=== PATIENT | female | born 2000 | race Caucasian/White ===

== ENCOUNTER 2023-05-02 12:00 | Outpatient (CLI) | payer OTHER ==
[2023-05-02 21:50] LABS: INFLUENZA A H3- RESP PCR PANEL DETECTED; INFLUENZA B - RESP PCR PANEL NOT DETECTED; RSV- RESP PCR PANEL NOT DETECTED; SARS-CoV-2 -RESP PCR PANEL NOT DETECTED
== END 2023-05-02 12:15 | disposition home or self-care (01) ==
LOC: LAB.N 12:00
PROVIDERS: ATTEND Registered Nurse
DX: R50.9 Fever, unspecified (principal); R52 Pain, unspecified; J34.89 Other specified disorders of nose and nasal sinuses
CPT/HCPCS: 87637

== ENCOUNTER 2023-09-12 12:59 | Outpatient (CLI) | payer OTHER | END 2023-09-12 13:00 | disposition home or self-care (01) | LOC: DI 12:59 | PROVIDERS: ATTEND Family Medicine | DX: R55 Syncope and collapse (principal); R94.31 Abnormal electrocardiogram [ECG] [EKG] | CPT/HCPCS: 93307 ==

== ENCOUNTER 2023-09-18 08:15 | Emergency (ER) | payer OTHER ==
--- NOTE | 2023-09-18 08:38 | ED Physician Documentation ---
PD HPI URI - Stated complaint Stated Complaint: FEVER,THROAT PX - Chief complaint Chief Complaint: Fever - History obtained from History obtained from: Patient - History of Present Illness Timing - onset: How many days ago (onset illness 4 days ago with congestion, runny nose, sore throat, mild cough, fevers. Has had dminishing other symptoms but sore throat escalating, mainly left side.) Timing duration: Days Timing details: Gradual onset, Still present Associated symptoms: Fever, Chills, Nasal congestion, Sore throat, Dry cough Contributing factors: No: Sick contact, Immunocompromised Similar symptoms before: Has not had sx before Review of Systems Constitutional: reports: Fever, Chills Nose: reports: Congestion Throat: reports: Sore throat, Swollen tonsils Respiratory: reports: Cough PD PAST MEDICAL HISTORY - Past Medical History Past Medical History: Yes Cardiovascular: None Respiratory: None Neuro: None Endocrine/Autoimmune: None GI: None CREDIT OPERATIONS SPECIALIST: None : None HEENT: None Psych: Anxiety, Obsessive compulsive disorder Musculoskeletal: None Derm: None - Past Surgical History Past Surgical History: Yes General: Appendectomy - Present Medications Home Medications: Ambulatory Orders Medication Instructions Recorded Confirmed Pnv No.95/Ferrous Fum/Folic AC 1 each PO DAILY 09/18/23 09/18/23 [ Tablet] cephALEXin [Keflex] 500 mg PO TID #20 cap 09/18/23 dexAMETHasone [Decadron] 4 mg PO DAILY #5 tablet 09/18/23 - Allergies Allergies/Adverse Reactions: Allergies Allergy/AdvReac Type Severity Reaction Status Date / Time amoxicillin Allergy Rash Verified 09/18/23 08:19 chorionic gonadotropin, Allergy Rash Verified 09/18/23 08:19 human (hCG) [From Chorex-10] - Social History Does the pt smoke?: No Smoking Status: Former smoker Does the pt drink ETOH?: Yes Does the pt have substance abuse?: No - Immunizations Immunizations are current?: Yes PD ED PE NORMAL - Vitals Vital signs reviewed: Yes - General General: Alert and oriented X 3, No acute distress, Well developed/nourished - HEENT HEENT: Moist mucous membranes. No: Pharynx benign (redness with swelling left perintonsillar area without focal swelling per se. No uvular deviation. ) - Neck Neck: Supple, no meningeal sign, Other (left adenopathy anterior cervical. ) - Cardiac Cardiac: No murmur. No: RRR (regular but tachycarcid at 107.) - Respiratory Respiratory: No respiratory distress, Clear bilaterally - Abdomen Abdomen: Normal bowel sounds, Soft - Derm Derm: Normal color, Warm and dry, No rash - Neuro Neuro: Alert and oriented X 3, No motor deficit, Normal speech Results - Vitals Vitals: Vital Signs - 24 hr 09/18/23 09/18/23 08:20 10:31 Temperature 37.4 C Heart Rate 107 H 97 Respiratory 18 18 Rate Blood Pressure 145/79 H 116/64 O2 Saturation 99 100 Oxygen O2 Source Room air - Labs Labs: Laboratory Tests 09/18/23 09/18/23 08:30 08:30 Nasal Adenovirus (PCR) NOT DETECTED Nasal B. parapertussis DNA (PCR) NOT DETECTED Nasal Coronavir 229E PCR NOT DETECTED Nasal Coronavir HKU1 PCR DETECTED A Nasal Coronavir NL63 PCR NOT DETECTED Nasal Coronavir OC43 PCR NOT DETECTED Nasal Enterovir/Rhinovir PCR NOT DETECTED Nasal Influenza B PCR NOT DETECTED Nasal Influenza A PCR NOT DETECTED Nasal Parainfluen 1 PCR NOT DETECTED Nasal Parainfluen 2 PCR NOT DETECTED Nasal Parainfluen 3 PCR NOT DETECTED Nasal Parainfluen 4 PCR NOT DETECTED Nasal RSV (PCR) NOT DETECTED Nasal B.pertussis DNA PCR NOT DETECTED Nasal C.pneumoniae (PCR) NOT DETECTED Anthony Human Metapneumo PCR NOT DETECTED Nasal M.pneumoniae (PCR) NOT DETECTED Nasal SARS-CoV-2 (PCR) NOT DETECTED Group A Strep Rapid Negative PD Medical Decision Making - ED course Complexity details: reviewed results (rapid strep negative, but clinically suspicious for URI with now secondary peritonsillar infection. will treat emiprically pending culture. ), considered differential, d/w patient Departure - Departure Disposition: 01 Home, Self Care Clinical Impression: Peritonsillar cellulitis Condition: Stable Record reviewed to determine appropriate education?: Yes Instructions: ED Peritonsillar Infec Abx No I andD Follow-Up: BRYAN PATEL DO [Primary Care Provider] - Prescriptions: dexAMETHasone [Decadron] 4 mg PO DAILY #5 tablet cephALEXin [Keflex] 500 mg PO TID #20 cap Comments: Your rapid strep test is negative but it does look very suspicious for bacterial type infection in the tissue there. We will do a culture off the swab and that will result in a couple of days. Will call if there is positive bacterial growth. Meanwhile with the level of suspicion for it, I would treat with some antibiotics pending those results as well as a steroid type anti-inflammatory. Stay well-hydrated. Tylenol and/or ibuprofen regularly for the next several days to help with pain. Recheck if worsening, in particular any feeling of swelling that is impeding swallowing breathing etc. Is a new prescriptions to [facility] pharmacy. Forms: PCP List Discharge Date/Time: 09/18/23 10:36
[2023-09-18 08:44] LABS: RAPID STREP SCREEN Negative (Negative)
[2023-09-18 09:28] LABS: B. PARAPERTUSSIS- RESP PCR PAN NOT DETECTED; B. PERTUSSIS- RESP PCR PANEL NOT DETECTED; C. PNEUMONIAE- RESP PCR PANEL NOT DETECTED; CORONAVIRUS 229E-RESP PCR NOT DETECTED; CORONAVIRUS HKU1-RESP PCR DETECTED; CORONAVIRUS NL63-RESP PCR NOT DETECTED; CORONAVIRUS OC43-RESP PCR NOT DETECTED; HUMAN METAPNEUMOVIRUS NOT DETECTED; INFLUENZA A- RESP PCR PANEL NOT DETECTED; INFLUENZA B - RESP PCR PANEL NOT DETECTED; M. PNEUMONIAE- RESP PCR PANEL NOT DETECTED; PARAINFLUENZA VIRUS 1 NOT DETECTED; PARAINFLUENZA VIRUS 2 NOT DETECTED; PARAINFLUENZA VIRUS 3 NOT DETECTED; PARAINFLUENZA VIRUS 4 NOT DETECTED; RHINOVIRUS/ENTEROVIRUS NOT DETECTED; RSV- RESP PCR PANEL NOT DETECTED; SARS-CoV-2 -RESP PCR PANEL NOT DETECTED
[2023-09-18] MEDS: ACETAMINOPHEN 500 MG TABLET PO STA (09:46)
[2023-09-18] MEDS: dexAMETHasone 4 MG TABLET PO STA (09:46)
[2023-09-18] MEDS: cephALEXin 250 MG CAPSULE PO STA (09:47)
[2023-09-18 10:38] VITALS: BP 116/64; O2SAT 100
== END 2023-09-18 10:36 | disposition home or self-care (01) ==
LOC: ED 08:15
DX: J36 Peritonsillar abscess (principal); Z87.891 Personal history of nicotine dependence
CPT/HCPCS: 87070; 87430; 87633; 99283; A9270; J8540

== ENCOUNTER 2023-10-12 08:00 | Outpatient (CLI) | payer OTHER ==
[2023-10-12 17:11] LABS: BILIRUBIN,URINE NEGATIVE (NEGATIVE); GLUCOSE, URINE (UA) NEGATIVE (NEGATIVE); KETONES,URINE (UA) NEGATIVE (NEGATIVE); LEUKOCYTE ESTERASE, URINE NEGATIVE (NEGATIVE); NITRITE,URINE NEGATIVE (NEGATIVE); OCCULT BLOOD,URINE NEGATIVE (NEGATIVE); PH,URINE 7.5 PH (5.0-7.5); PROTEIN,URINE NEGATIVE (NEGATIVE); UROBILINOGEN,URINE 0.2 (NORMAL) E.U./dL (NORMAL)
[2023-10-12 17:17] LABS: CLARITY,URINE CLEAR (CLEAR)
[2023-10-12 17:24] LABS: BACTERIA,URINE Many /HPF (None Seen); RBC,URINE None Seen /HPF (0-5); SQUAMOUS EPITHELIAL CELL,UR MOD Squamous (<= Few); WBC,URINE 0-3 /HPF (0-5)
== END 2023-10-12 23:59 | disposition home or self-care (01) ==
LOC: LAB.WC 08:00
PROVIDERS: ATTEND Nurse Practitioner
DX: Z34.00 Encounter for supervision of normal first pregnancy, unspecified trimester (principal)
CPT/HCPCS: 81001; 87086

== ENCOUNTER 2023-10-30 11:11 | Outpatient (CLI) | payer OTHER ==
--- NOTE | 2023-10-30 14:32 | Ultrasound Report ---
PROCEDURE: OB 1st Trimester INDICATIONS: POSITIVE TEST OUTSIDE/PRIOR DATING DATA: Last menstrual period (LMP): 08/24/2023. LMP-based estimated date of delivery (BOB): 05/30/2024. Estimated date of delivery (BOB) from first dating scan: 05/29/2024. TECHNIQUE: Real-time scanning was performed of the fetus and maternal pelvic organs, with image documentation. COMPARISON: None. FINDINGS: heart motion is detected at a rate of 173 bpm. [place]-rump length is 2.9 cm corresponding to ultrasound age of 9 weeks and 5 days. Yolk sac is seen. Right corpus luteum. Left ovary is not seen due to bowel gas. IMPRESSION: Living intrauterine gestation at an ultrasound age of 9 weeks and 5 days. Reviewed by: Brown Wong MD on 10/30/2023 2:30 PM PDT Approved by: Brown Wong MD on 10/30/2023 2:30 PM PDT Station ID: [id number]
== END 2023-10-30 11:12 | disposition home or self-care (01) ==
LOC: DI 11:11
PROVIDERS: ATTEND Nurse Practitioner
DX: Z34.01 Encounter for supervision of normal first pregnancy, first trimester (principal)

== ENCOUNTER 2023-11-08 11:12 | Outpatient (CLI) | payer OTHER ==
[2023-11-08 11:37] LABS: BASOPHILS % (AUTO) 0.1 %; EOSINOPHILS # (AUTO) 0.1 10^3/uL (0.0-0.7); EOSINOPHILS % (AUTO) 1.3 %; HCT - HEMATOCRIT 35.9 % (37.0-47.0); HGB - HEMOGLOBIN 11.7 g/dL (12.0-16.0); LYMPHOCYTES # (AUTO) 1.8 10^3/uL (1.5-3.5); LYMPHOCYTES % (AUTO) 25.1 %; MEAN CORPUSCULAR HEMOGLOBIN 27.9 pg (27.0-31.0); MEAN CORPUSCULAR HGB CONC 32.6 g/dL (32.0-36.0); MEAN CORPUSCULAR VOLUME 85.7 fL (81.0-99.0); MEAN PLATELET VOLUME 9.3 fL (7.9-10.8); MONOCYTES # (AUTO) 0.5 10^3/uL (0.0-1.0); MONOCYTES % (AUTO) 6.4 %; NEUTROPHILS # (AUTO) 4.7 10^3/uL (1.5-6.6); NEUTROPHILS % (AUTO) 66.7 %; PLT - PLATELET COUNT 246 10^3/uL (130-450); RED BLOOD COUNT 4.19 10^6/uL (4.20-5.40); RED CELL DISTRIBUTION WIDTH 13.3 % (12.0-15.0); WHITE BLOOD COUNT 7.1 x10^3/uL (4.8-10.8)
[2023-11-08 23:22] LABS: CHLAMYDIA TRACHOMATIS DNA NEGATIVE (NEGATIVE); NEISSERIA GONORRHOEAE DNA NEGATIVE (NEGATIVE); TRICHOMONAS VAGINALIS DNA NEGATIVE (NEGATIVE)
[2023-11-09 03:11] LABS: HBsAG SCREEN Negative (Negative)
[2023-11-09 05:14] LABS: HIV SCREEN 4TH GENERATION Non Reactive (Non Reactive)
[2023-11-09 07:10] LABS: RPR Non Reactive (Non Reactive)
[2023-11-09 09:11] LABS: VARICELLA-ZOSTER AB IGG 3369 index (Immune >165)
== END 2023-11-08 11:13 | disposition home or self-care (01) ==
LOC: LAB 11:12
PROVIDERS: ATTEND Nurse Practitioner
DX: Z34.00 Encounter for supervision of normal first pregnancy, unspecified trimester (principal); Z36.89 Encounter for other specified antenatal screening
CPT/HCPCS: 36415; 85025; 86592; 86762; 86787; 86803; 86850; 86900; 86901; 87340; 87389; 87491; 87591; 87661

== ENCOUNTER 2023-12-28 16:23 | Outpatient (CLI) | payer OTHER | END 2023-12-28 16:24 | disposition home or self-care (01) | LOC: LAB 16:23 | PROVIDERS: ATTEND Nurse Practitioner | DX: Z36.89 Encounter for other specified antenatal screening (principal) | CPT/HCPCS: 36415; 81511 ==

== ENCOUNTER 2024-01-11 15:52 | Outpatient (CLI) | payer OTHER ==
--- NOTE | 2024-01-12 11:22 | Ultrasound Report ---
PROCEDURE: OB Anatomy Scan INDICATIONS: SUPERVISION OF OUTSIDE/PRIOR DATING DATA: Last menstrual period (LMP): 08/24/2023. LMP-based estimated date of delivery (BOB): 05/30/2024. The below data below was generated using the clinical BOB of 05/30/2024 TECHNIQUE: Real-time scanning was performed of the fetus, with image documentation and biometric measurements. Endovaginal scanning: Not performed. COMPARISON: 10/30/2023 FINDINGS: General: A single living intrauterine gestation is present. Presentation: Vertex Placenta: Placental position is anterior, without previa. Amniotic fluid index: 13.8 cm, 46th percentile for gestational age. heart rate: 136 beats per minute. Maternal cervical canal: 4.3 cm long; normal length is 2.5 cm or more. biometrics: Biparietal diameter: 4.85 cm, 20 weeks 5 days, 76.8 percentile Head circumference: 18.41 cm, 20 weeks 5 days, 76.7 percentile Abdominal circumference: 15.6 cm, 20 weeks 6 days, 70.5 percentile Femur length: 3.06 cm, 19 weeks 3 days, 24 percentile Estimated gestational age from initial scan: 20 weeks 0 days Composite gestational age from present scan: 20 weeks 4 days Estimated weight and percentile: 242.1 g, 60.5 percentile Measurement variability in biometric dating: +/- 10 days from 12-20 weeks gestation, +/- 2 weeks from 20-30 weeks gestation, +/- 3 weeks at 30 weeks gestation or later. Anatomic survey: Markedly limited due to position. Neuro: Ventricles are normal at less than 10 mm. Cisterna magna is normal at 3-11 mm. Cerebellum i s normal in size and morphology. Nuchal skin fold: Normal at less than 6 mm between 14 and 20 weeks gestational age. Face: Not well visualized. Spine: No evidence for spina bifida. Heart: Not well visualized. Diaphragm: not well visualized. Stomach: Left-sided stomach is present. Kidneys: No hydronephrosis. Normal is less than 5 mm in 2nd trimester, less than 7 mm in 3rd trimester. Cord: Not well visualized. Bladder: Normal in size. Extremities: All 4 extremities are visualized. IMPRESSION: Single living intrauterine at 20 weeks 0 days, BOB of 05/30/2024. Estimated weight of 242 g, 60.5 percentile. The face, heart, diaphragm and cord are not well visualized due to position. Consider short-ter m follow-up. Reviewed by: Tyler Hunter MD on 01/12/2024 11:20 AM PDT Approved by: Tyler Hunter MD on 01/12/2024 11:20 AM PDT Station ID: [id number]
== END 2024-01-11 15:53 | disposition home or self-care (01) ==
LOC: DI 15:52
PROVIDERS: ATTEND Nurse Practitioner
DX: Z34.02 Encounter for supervision of normal first pregnancy, second trimester (principal)

== ENCOUNTER 2024-01-12 08:00 | Outpatient (CLI) | payer OTHER ==
[2024-01-12 21:02] LABS: BACTERIAL VAGINOSIS DNA NEGATIVE (NEGATIVE); CANDIDA GLABRATA DNA NEGATIVE (NEGATIVE); CANDIDA GROUP DNA NEGATIVE (NEGATIVE); CANDIDA KRUSEI DNA NEGATIVE (NEGATIVE); TRICHOMONAS VAGINALIS DNA NEGATIVE (NEGATIVE)
== END 2024-01-12 23:59 | disposition home or self-care (01) ==
LOC: LAB.WC 08:00
PROVIDERS: ATTEND Nurse Practitioner
DX: L29.8 Other pruritus (principal)
CPT/HCPCS: 81514

== ENCOUNTER 2024-05-30 08:18 | Inpatient (IN) ==
--- NOTE | 2024-05-30 09:39 | PROVIDER PROGRESS NOTE ---
HPI Current : Vital Signs Temperature 36.8 C 05/30/24 08:49 Pulse Rate 83 05/30/24 08:49 Respiratory Rate 17 05/30/24 08:49 Blood Pressure 137/83 H 05/30/24 08:49 Plan Plan: 24 yo presents to L&D for labor evaluation at 40+0 weeks gestation. Reactive NST. Baseline heart rate 140, moderate variability, +accelerations, - decelerations. CTX q 2-3.5, palpate moderately. SVE 3-4/80/-2. Desires to stay for admission. Outpatient encounter completed and admission process initiated.
[2024-05-30] MEDS ORDERED: LABETALOL 20 MG/4 ML SYRINGE IVP PRN ×5 (11:35→23:40)
[2024-05-30] MEDS ORDERED: OXYTOCIN 10 UNIT/ML VIAL IM PRN (11:35)
[2024-05-30] MEDS ORDERED: hydrALAZINE INJ 20 MG/ML VIAL IVP PRN ×3 (11:35→23:40)
[2024-05-30] MEDS ORDERED: NIFEdipine 10 MG CAPSULE PO PRN ×2 (11:35→23:40)
[2024-05-30] MEDS ORDERED: miSOPROStoL 200 MCG TABLET PR PRN (11:35)
[2024-05-30] MEDS ORDERED: TERBUTALINE 1 MG/ML VIAL SUBQ PRN (11:35)
[2024-05-30] MEDS ORDERED: SODIUM CHLORIDE FLUSH 0.9% 10 ML SYRINGE IVP PRN (11:35)
[2024-05-30] MEDS ORDERED: LACTATED RINGERS 1,000 ML IV PRN (11:35)
[2024-05-30] MEDS ORDERED: miSOPROStoL 200 MCG TABLET BC PRN (11:35)
[2024-05-30] MEDS ORDERED: fentaNYL 100 MCG/2 ML VIAL IVP PRN (11:35)
[2024-05-30] MEDS ORDERED: lidocaine 1% 20 ML MDV ID PRN (11:35)
[2024-05-30] MEDS ORDERED: METHYLERGONOVINE 0.2 MG/ML VIAL IM PRN (11:35)
[2024-05-30] MEDS ORDERED: SODIUM CHLORIDE FLUSH 0.9% 10 ML SYRINGE IVP SCH (12:00)
[2024-05-30] MEDS: ACETAMINOPHEN 500 MG TABLET PO PRN (12:17)
--- NOTE | 2024-05-30 13:11 | HISTORY & PHYSICAL EXAMINATION ---
Admit History Smoking Status: Never smoker Other Maternal History Other Maternal History: HPI: This 24 yo @ 40+0 weeks by LMP and confirmed by 9+5 week ultrasound. She has been patricia regularily since 0200. Has not been able to get any rest. The contractions continued to become stronger and closer together. Upon arrival her cervix was 2/60/-2 (RN exam). Desired to stay on L&D and open to membrane sweeping. Post sweeping, 3-4/80/-2, intact, vertex. She has been a patient of [facility] care for the duration of her which has remained uncomplicated. She has had a recent viral course and had an elevated temperature after membrane sweeping. Intermittent nausea. ROS: No Headache, visual changes or right upper quadrant abdominal pain. Denies urinary urgency or dysuria. All other symptoms reviewed and were negative except per HPI. In the event of an emergency, DOES accept the administration of blood products. Specific Issues/Plans LMP: 08/24/2023 BOB by LMP: 05/30/2024 US: 10/30/23 9+5w CW LMP Final BOB: 05/30/2024 Allergies: Chlorhexidine Amoxicillin RX: PNV Folic acid Social Hx: Never smoker. No ETOH or IVDA. Zhou. FM HX: MGF: pancreatic ca, PGF: heart disease, diabetes, Brother: spinabifida Surgical: Appendectomy, [place] teeth Pre- Weight: 182 BMI: 27.06 Blood type: O+ Antibody: Negative CBC: PLT 246 HCT 35.9 HGB 11.7 RUB: Immune VZV: Immune HBsAg: Negative HepC: NR RPR/AB-EIA: NR HIV: NR PAP:Jan 2022 normal GC/CT: 11/07 Negative HSV: denies in self and partner Genetic testing: Quad - Screen Negative- This result is screen negative for OSB, Down, Syndrome and Trisomy 18. Covid: vaccinated and virus Flu: vaccinated RSV: vaccinated FAS: 01/11/2024 Placenta: Anterior w/o previa Cord: not well visualized NIK: 138cm EFW: 242g; 60.5%tile 50gm OGCT: 148 3HR GTT: F: 89; 1h: 128: 2hr 120; 3hr 106 TDAP: 03/12/2024 Breast Pump: Given RPR NR RSV vaccine: 04/10/2024 Antibody screen: 3rd trimester PLT 231 HCT 37.2 HGB 12.1 GBS: Negative Delivery plan: unsure, would like to try unmedicated. Possibly nitrous. Not opposed to epidural. Contraception: Previously nexplanon. Unsure this time. Physical exam: Normocephalic, atraumatic No increased work of breathing Abdomen gravid, soft, nontender. EFW 3800 FHR baseline 140, moderate variability, + accelerations, no decelerations Contractions palpate moderate every 3-6 minutes with soft resting tone SVE 3-4/80/-2, vertex, membranes intact Bilateral LE's 1+ edema Mood is good. Assessment: 24 yo @ 40+0 weeks gestation by 9+5 wk U/S Early labor FHR 140's Cat I Intact membranes GBS NEG Elevated WBC but may be associated with physiologic changes in labor. Low grade fever Plan: Admit to [facility] for expectant management. Considering augmentation of labor if not changed. Intermittent heart rate auscultation/ continuous monitoring as indicated Tylenol for fever. Will monitor for maternal/ tachycardia. Jacuzzi PRN. Nitrous oxide PRN. Epidural PRN Maternal Request. Anticipate . HPI Current : Current EDU 05/30/24 Gestation 40 Weeks and 0 Days Para 0 Vital Signs Temperature 37.9 C 05/30/24 12:28 Pulse Rate 83 05/30/24 08:49 Respiratory Rate 17 05/30/24 08:49 Blood Pressure 137/83 H 05/30/24 08:49 NST Procedure NST Procedure: NST Procedure Start Date 05/30/24 Start Time 09:00 Stop Time 09:20 Vibroacoustic Stimulation Used No Patient States Movement Yes Meds/Allgy Home Medications Ambulatory Orders Medication Instructions Recorded Confirmed vit no.95-ferrous 1 ea PO DAILY 09/18/23 05/30/24 fumarate 28 mg-folic acid 800 mcg tablet folic acid 1 mg tablet 1 mg PO DAILY 02/14/24 05/30/24 Allergies Allergies Allergy/AdvReac Type Severity Reaction Status Date / Time chlorhexidine Allergy Intermediate Rash Verified 05/27/24 14:36 amoxicillin Allergy Rash Verified 05/27/24 14:36 [facility] Surgical History Surgical History (Updated 04/29/24 @ 10:37 by Yoli Zendejas MA) [place] teeth extracted History of appendectomy Family History Family History (Updated 04/29/24 @ 10:39 by Yoli Zendejas MA) Brother Spina bifida Paternal grandfather Heart disease Maternal grandfather Pancreatic cancer Social History Social History Smoking Status: Never smoker Do you vape?: No Do you feel safe in your home environment?: Yes Suffered physical, verbal, emotional, or financial abuse?: No History of Abuse: No Frequency: Occasional Physical Abdominal Exam Vital Signs: Temp Pulse Resp BP 37.9 C 83 17 137/83 H 05/30/24 12:28 05/30/24 08:49 05/30/24 08:49 05/30/24 08:49 Plan for Labor Plan For Labor I expect patient to be DC'd or transferred within 96 hours.: Yes Conclusion/Plan Lab Results 05/30/24 13:55
[2024-05-30 14:07] LABS: BASOPHILS % (AUTO) 0.2 %; EOSINOPHILS % (AUTO) 0.1 %; HCT - HEMATOCRIT 38.5 % (37.0-47.0); HGB - HEMOGLOBIN 13.1 g/dL (12.0-16.0); LYMPHOCYTES # (AUTO) 1.3 10^3/uL (1.5-3.5); LYMPHOCYTES % (AUTO) 6.7 %; MEAN CORPUSCULAR HEMOGLOBIN 29.8 pg (27.0-31.0); MEAN CORPUSCULAR VOLUME 87.7 fL (81.0-99.0); MONOCYTES # (AUTO) 0.8 10^3/uL (0.0-1.0); MONOCYTES % (AUTO) 4.2 %; NEUTROPHILS # (AUTO) 16.9 10^3/uL (1.5-6.6); NEUTROPHILS % (AUTO) 88.1 %; PLT - PLATELET COUNT 258 10^3/uL (130-450); RED BLOOD COUNT 4.39 10^6/uL (4.20-5.40); RED CELL DISTRIBUTION WIDTH 13.1 % (12.0-15.0); WHITE BLOOD COUNT 19.1 x10^3/uL (4.8-10.8)
[2024-05-30 14:25] LABS: CORONAVIRUS 229E-RESP PCR NOT DETECTED; CORONAVIRUS HKU1-RESP PCR NOT DETECTED; CORONAVIRUS NL63-RESP PCR NOT DETECTED; CORONAVIRUS OC43-RESP PCR NOT DETECTED; HUMAN METAPNEUMOVIRUS NOT DETECTED; INFLUENZA A- RESP PCR PANEL NOT DETECTED; RHINOVIRUS/ENTEROVIRUS DETECTED; SARS-CoV-2 -RESP PCR PANEL NOT DETECTED
[2024-05-30 14:26] LABS: B. PARAPERTUSSIS- RESP PCR PAN NOT DETECTED; B. PERTUSSIS- RESP PCR PANEL NOT DETECTED; C. PNEUMONIAE- RESP PCR PANEL NOT DETECTED; INFLUENZA B - RESP PCR PANEL NOT DETECTED; M. PNEUMONIAE- RESP PCR PANEL NOT DETECTED; PARAINFLUENZA VIRUS 1 NOT DETECTED; PARAINFLUENZA VIRUS 2 NOT DETECTED; PARAINFLUENZA VIRUS 4 NOT DETECTED; RSV- RESP PCR PANEL NOT DETECTED
--- NOTE | 2024-05-30 16:23 | PHARMACY PROGRESS NOTE ---
Best Possible Medication History Admit Date and Time: 05/30/24 1135 Home Medications Medication Instructions Recorded Confirmed Type vit no.95-ferrous 1 ea PO DAILY 09/18/23 05/30/24 History fumarate 28 mg-folic acid 800 mcg tablet folic acid 1 mg tablet 1 mg PO DAILY 02/14/24 05/30/24 History Processed by: Pharmacy (Medication Reconciliation completed by case technicianVibha) Medications reviewed in ED?: No Medication History completed: Yes Patient Interview: Completed Secondary Source(s): Insurance records [facility] Statement: As the person ultimately responsible for medication therapy, providers are able to order a medication from an existing home medication list in [facility] via the "Reconcile Routine" prior to Confirmation of that medication by patient support associate. Such practice is discouraged except when the physician, in their clinical judgment, deems that a medical need exists for a medication without regard to previous use.
[2024-05-30] MEDS ORDERED: LIDOCAINE 2%-EPI 1:100000 20 ML MDV ONE (18:24)
[2024-05-30] MEDS ORDERED: ROPIVACAINE 0.2% 200 MG/100 ML BAG EP ONE (18:24)
[2024-05-30] MEDS ORDERED: diphenhydrAMINE INJ 50 MG/ML VIAL IVP PRN (18:54)
[2024-05-30] MEDS ORDERED: METOCLOPRAMIDE 10 MG/2 ML VIAL IVP PRN (18:54)
[2024-05-30] MEDS ORDERED: LACTATED RINGERS 500 ML IV ONE (18:54)
[2024-05-30] MEDS ORDERED: ePHEDrine 50 MG/ML VIAL IVP PRN (18:54)
[2024-05-30] MEDS ORDERED: ROPIVACAINE 0.2% 200 MG/100 ML BAG EP PRN (18:54)
[2024-05-30] MEDS ORDERED: ONDANSETRON 4 MG/2 ML VIAL IVP PRN (18:54)
[2024-05-30] MEDS ORDERED: NALBUPHINE 10 MG/ML AMP IVP PRN (18:54)
[2024-05-30] MEDS ORDERED: NALOXONE 0.4 MG/ML VIAL IVP PRN ×2 (18:54→23:40)
--- NOTE | 2024-05-30 18:55 | PROVIDER PROGRESS NOTE ---
Labor Progress Note Labor Progress Note Labor Progress Note/Additional Text: @1800: S/O: Patient continues to be uncomfortable. Moaning through contractions. Has tried rocking chair, labor tub, and bed. Some relief with nitrous. Desires SVE. Open to AROM if safe to do so. Requesting epidural A/P: 24 yo @ 40+0 wks gestation by 9+5 wk U/S Active labor Term GBS negative 6-7/100/-2 AROM, Clear fluid P: Anesthesia notified for placement of epidural for pain management. Initiate continuous monitoring now. Will encouraged rotation in bed on peanut ball after patient is comfortable with epidural. Anticipate .
[2024-05-30] MEDS: LACTATED RINGERS 1,000 ML IV SCH (18:56)
--- NOTE | 2024-05-30 18:57 | ANESTHESIA PROCEDURE NOTE ---
Pre-Anesthesia VS, & Labs Diagnosis Surgical Diagnosis:: term labor pain Procedure Procedure: epidural for Vitals Vital Signs: Temp Pulse Resp BP 37.0 C 83 17 137/83 H 05/30/24 14:45 05/30/24 08:49 05/30/24 08:49 05/30/24 08:49 Is Patient ?: Yes Lab Results Current Lab Results: Laboratory Tests 05/30/24 13:55: WBC 19.1 H, RBC 4.39, Hgb 13.1, Hct 38.5, MCV 87.7, MCH 29.8, MCHC 34.0, RDW 13.1, Plt Count 258, MPV 10.0, Neut # (Auto) 16.9 H, Lymph # (Auto) 1.3 L, [place] # (Auto) 0.8, Eos # (Auto) 0.0, Baso # (Auto) 0.0, Absolute Nucleated RBC 0.00, Nucleated RBC % 0.0, Blood Type O POSITIVE, Antibody Screen NEGATIVE Lab results reviewed: Yes 05/30/24 13:55 Meds/Allgy Home Medications Ambulatory Orders Medication Instructions Recorded Confirmed vit no.95-ferrous 1 ea PO DAILY 09/18/23 05/30/24 fumarate 28 mg-folic acid 800 mcg tablet folic acid 1 mg tablet 1 mg PO DAILY 02/14/24 05/30/24 Allergies Allergies Allergy/AdvReac Type Severity Reaction Status Date / Time chlorhexidine Allergy Intermediate Rash Verified 05/27/24 14:36 amoxicillin Allergy Rash Verified 05/27/24 14:36 [facility] Surgical History Surgical History (Updated 04/29/24 @ 10:37 by Yoli Zendejas MA) [place] teeth extracted History of appendectomy Family History Family History (Updated 04/29/24 @ 10:39 by Yoli Zendejas MA) Brother Spina bifida Paternal grandfather Heart disease Maternal grandfather Pancreatic cancer Social History Social History Smoking Status: Never smoker Do you vape?: No Do you feel safe in your home environment?: Yes Suffered physical, verbal, emotional, or financial abuse?: No History of Abuse: No Frequency: Occasional Anesthesia Exam (Expanded) Exam General: Alert, Oriented x3, Cooperative and Mild distress Dental: WNL Mouth Openin Fingerbreadth Neck Mobility: Normal Mallampati classification: II Respiratory: No respiratory distress Cardiovascular: Regular rate Neurological: Normal speech Mental/Cognitive Status: Alert/Oriented X3 and Normal for patient Cognitive Status: Within normal limits Plan Plan Anesthesia Type: Epidural Consent for Procedure(s) Verified and Reviewed: Yes Code Status: Attempt Resuscitation ASA Classification ASA classification: 2-Mild systemic disease Is this case an emergency?: No
[2024-05-30] MEDS: ONDANSETRON 4 MG/2 ML VIAL IVP PRN (22:29)
[2024-05-30] MEDS: OXYTOCIN/SODIUM CHLORIDE 500 ML IV PRN (23:11)
[2024-05-30] MEDS: TRANEXAMIC ACID IN NACL 1,000 MG/100 ML BAG IV PRN (23:23)
[2024-05-30] MEDS ORDERED: LABETALOL 5 MG/1 ML 20 ML MDV IVP PRN (23:40)
[2024-05-30] MEDS ORDERED: SIMETHICONE CHEW 80 MG TABLET PO PRN (23:40)
[2024-05-30] MEDS ORDERED: OXYTOCIN/SODIUM CHLORIDE 500 ML IV PRN (23:40)
--- NOTE | 2024-05-30 23:54 | DELIVERY NOTE ---
Delivery Note Delivery Comments (Free Text/Narrative) Delivery Comments (Free Text/Narrative): This 24 -year-old, G 1 P 0 @ 40 weeks gestation by 9+5 week ultrasound/ LMP presented @ in early labor and in condition. Cervix was 3-4cm and Vertex presentation by [facility]. GBS negative. No pharmaceutical in tervention/augmentation of labor. FHR pattern demonstrated 140 baseline in a primarily category I prior to second stage. Normal labor course. Epidural placed upon maternal request. AROM occurred @ 1755, moderate amount of clear fluid. She then progressed to complete/complete 05/30/2024 @ 2224 and ready to deliver/ second stage began. : Normal spontaneous vaginal delivery of a viable female infant on 05/30/2024 @ 2309. No nuchal cord. Compound delivery of the left arm. BETSY. The was placed on maternal abdomen, stimulated, dried and placed skin to skin. Apgars 8 & 9 @ 1 & 5 minutes. Her bleeding had begun to increase prior to placenta delivery so delivery of placenta was expedited after 2 minutes of delayed cord clamping. Cord was doubly clamped by delivering provider and cut by FOB. 3VC. Cord blood was obtained. Fundal massage and gently cord traction applied for active management of the third stage, placenta delivered spontaneously and intact and appeared normal. EBL 550cc. Placenta was NOT sent to pathology. Pitocin administered via IV for hemostasis and allowed to run freely. Uterine massage was performed until uterus was deemed firm, but moderate bleeding duane nued. TXA infusion began. weight: 9#4.151oz Inspection of the perineum noted only a few small vaginal abrasions. [place] ring tear continued to ooze despite pressure and was sutured with two figure eight stitches. Repaired under epidural anesthesia with 3-0 vicryl rapide, repaired in standards fashion under sterile conditions. Upon re-inspection the patient was hemostatic. Uterus again massaged and found to be firm. Needle and sponge counts were correct. Uterine fundus firm and there is no excessive bleeding. Tissues well approximated. Skin to skin initiated. Family bonding well. Both mother and baby are in stable condition.
[2024-05-31] MEDS: IBUPROFEN 600 MG TABLET PO PRN (01:10)
--- NOTE | 2024-05-31 08:31 | PROVIDER PROGRESS NOTE ---
Subjective Subjective Subjective: S: 05/30/24 @ 2309 over intact perineum with only a few small abrasions. Compound delivery of the left hand. Increased bleeding received IV pitocin and TXA. She reports soreness in the perineal area, buttocks, but no heavy vaginal bleeding, no significant cramping, headaches, or visual changes. Tolerating oral intake, voiding without difficulty, passing flatus, Denies BM, boding well with patient in room. Denies feeling lightheaded, dizzy, or excessively fatigued. Her vital signs have been WNL except for a few febrile temps last within the recovery period. O: General: Alert, oriented, no apparent distress. Cardiovascular: No edema. Regular rate. Regular rhythm. Lungs: No increased work of breathing. Abdomen: Uterus firm. Below umbilicus. No guarding or rebound tenderness. Extremities: No pain on palpation. Distal pulses intact. A/P: day 1. 24 yo G1now P1 s/p on 05/30/2024 @ 2309 compound delivery of hand following spontaneous onset of labor. PPD#1 doing well - Routine care. - given overnight delivery and recommendation for baby to be monitored x24 hours, patient very agreeable to staying until 06/01/2024 for discharge. The plan includes continued monitoring of temp and BP, encouraging rest, maintaining pain management with Tylenol and Ibuprofen Will anticipate discharge tomorrow. Current Medications Current Medications Current Medications: Current Medications Generic Name Dose Route Start Last Admin Trade Name Freq PRN Reason Stop Dose Admin Acetaminophen 1,000 mg 05/30/24 23:40 Acetaminophen 500 Mg Tablet PO Q8HR PRN Mild Pain or Fever>38C(100.4F) Diphenhydramine HCl 12.5 - 25 mg 05/30/24 18:54 Diphenhydramine Inj 50 Mg/Ml Vial IVP Q6HR PRN ITCHING Docusate Sodium 100 mg 05/31/24 09:00 Docusate Sodium 100 Mg Capsule PO BID FOREIGN Ephedrine Sulfate 5 mg 05/30/24 18:54 Ephedrine 50 Mg/Ml Vial IVP Q5M PRN For SBP<100;give until SBP>100 Hydralazine HCl 5 - 10 mg 05/30/24 11:35 Hydralazine Inj 20 Mg/Ml Vial IVP Q20M PRN SBP> or= 160 OR DBP> or= 110 Protocol Hydralazine HCl 10 mg 05/30/24 23:40 Hydralazine Inj 20 Mg/Ml Vial IVP .ONCE PRN SBP> or= 160 OR DBP> or= 110 Protocol Hydralazine HCl 5 - 10 mg 05/30/24 23:40 Hydralazine Inj 20 Mg/Ml Vial IVP Q20M PRN SBP >=160 and/or DBP >=110 Protocol Lactated Ringer's 1,000 mls @ 125 mls/hr 05/30/24 12:00 05/31/24 06:20 Lr IV 125 mls/hr .Q8H FOREIGN Administration Ropivacaine 200 mg in 100 mls @ 0 mls/hr 05/30/24 18:54 Naropin 0.2% EP PRN PRN PAIN Protocol Per Protocol Oxytocin/Sodium Chloride 500 mls @ 999 mls/hr 05/30/24 23:40 Pitocin/Sodium Chloride IV PRN PRN POST- HEMORR PREVENTION Protocol 999 MILLIUNIT/MIN Ibuprofen 600 mg 05/30/24 23:40 05/31/24 08:08 Ibuprofen 600 Mg Tablet PO 600 mg Q6HR PRN Administration Moderate Pain (Level 4-6) Labetalol HCl 20 - 80 mg 05/30/24 11:35 Labetalol 20 Mg/4 Ml Syringe IVP Q10M PRN SBP> or= 160 OR DBP> or= 110 Protocol Labetalol HCl 20 mg 05/30/24 11:35 Labetalol 20 Mg/4 Ml Syringe IVP .ONCE PRN SBP> or= 160 OR DBP> or= 110 Protocol Labetalol HCl 20 - 40 mg 05/30/24 11:35 Labetalol 20 Mg/4 Ml Syringe IVP Q10M PRN SBP> or= 160 OR DBP> or= 110 Protocol Labetalol HCl 20 - 80 mg 05/30/24 23:40 Labetalol 5 Mg/1 Ml 20 Ml Mdv IVP Q10M PRN SBP> or= 160 OR DBP> or= 110 Protocol Labetalol HCl 20 - 40 mg 05/30/24 23:40 Labetalol 20 Mg/4 Ml Syringe IVP Q10M PRN SBP> or= 160 OR DBP> or= 110 Protocol Labetalol HCl 20 mg 05/30/24 23:40 Labetalol 20 Mg/4 Ml Syringe IVP .ONCE PRN SBP >=160 and/or DBP >=110 Protocol Methylergonovine Maleate 0.2 mg 05/30/24 11:35 Methylergonovine 0.2 Mg/Ml Vial IM .ONCE PRN Hemorrhage Metoclopramide HCl 10 mg 05/30/24 18:54 Metoclopramide 10 Mg/2 Ml Vial IVP Q6HR PRN Nausea / Vomiting Misoprostol 600 mcg 05/30/24 11:35 Misoprostol 200 Mcg Tablet BC .ONCE PRN Hemorrhage Misoprostol 800 mcg 05/30/24 11:35 Misoprostol 200 Mcg Tablet TN .ONCE PRN Hemorrhage Nalbuphine HCl 2.5 - 5 mg 05/30/24 18:54 Nalbuphine 10 Mg/Ml Amp IVP Q4H PRN ITCHING Naloxone HCl 0.1 mg 05/30/24 18:54 Naloxone 0.4 Mg/Ml Vial IVP Q2M PRN RR<8 Naloxone HCl 0.4 mg 05/30/24 23:40 Naloxone 0.4 Mg/Ml Vial IVP .ONCE PRN Opioid Overdose Nifedipine 10 - 20 mg 05/30/24 11:35 Nifedipine 10 Mg Capsule PO Q20M PRN SBP> or= 160 OR DBP> or= 110 Protocol Nifedipine 10 - 20 mg 05/30/24 23:40 Nifedipine 10 Mg Capsule PO Q20M PRN SBP >=160 and/or DBP >=110 Protocol Ondansetron HCl 4 mg 05/30/24 11:38 05/30/24 22:29 Ondansetron 4 Mg/2 Ml Vial IVP 4 mg Q6HR PRN Administration Nausea / Vomiting Ondansetron HCl 4 mg 05/30/24 18:54 Ondansetron 4 Mg/2 Ml Vial IVP Q6HR PRN Nausea / Vomiting Simethicone 80 mg 05/30/24 23:40 Simethicone Chew 80 Mg Tablet PO TID PRN Gas Sodium Chloride 10 ml 05/30/24 11:35 Sodium Chloride Flush 0.9% 10 Ml Syringe IVP PRN PRN NEEDED PER PROVIDER ORDERS Sodium Chloride 10 ml 05/30/24 12:00 Sodium Chloride Flush 0.9% 10 Ml Syringe IVP Q8H FOREIGN Objective Vital Signs/Intake & Output Vital Signs: Vital Signs x48h Temp Pulse Resp BP Pulse Ox 05/31/24 07:54 36.7 C 84 16 120/60 97 05/31/24 06:05 36.8 C 05/31/24 03:40 38.5 C H 88 16 121/61 05/31/24 02:14 37.5 C 94 18 120/55 L 99 05/31/24 01:15 90 124/69 05/31/24 01:00 102 H 127/68 05/31/24 00:45 95 121/82 Intake & Output: Intake & Output 05/28/24 05/29/24 05/30/24 05/31/24 23:59 23:59 23:59 23:59 Intake Total 546 / 546 500 / 500 Output Total 700 / 700 Balance 546 / 546 -200 / -200 Weight (kg) 217 lb Lab Results 05/30/24 13:55 Other Labs: Lab Results x24hrs 05/30/24 05/30/24 Range/Units 13:55 13:14 WBC 19.1 H (4.8-10.8) x10^3/uL RBC 4.39 (4.20-5.40) 10^6/uL Hgb 13.1 (12.0-16.0) g/dL Hct 38.5 (37.0-47.0) % MCV 87.7 (81.0-99.0) fL MCH 29.8 (27.0-31.0) pg MCHC 34.0 (32.0-36.0) g/dL RDW 13.1 (12.0-15.0) % Plt Count 258 (130-450) 10^3/uL MPV 10.0 (7.9-10.8) fL Neut # (Auto) 16.9 H (1.5-6.6) 10^3/uL Lymph # (Auto) 1.3 L (1.5-3.5) 10^3/uL Beltrami # (Auto) 0.8 (0.0-1.0) 10^3/uL Eos # (Auto) 0.0 (0.0-0.7) 10^3/uL Baso # (Auto) 0.0 (0.0-0.1) 10^3/uL Absolute Nucleated RBC 0.00 x10^3/uL Nucleated RBC % 0.0 /100WBC Nasal Adenovirus (PCR) NOT DETECTED Nasal B. parapertussis DNA (PCR) NOT DETECTED Nasal Coronavir 229E PCR NOT DETECTED Nasal Coronavir HKU1 PCR NOT DETECTED Nasal Coronavir NL63 PCR NOT DETECTED Nasal Coronavir OC43 PCR NOT DETECTED Nasal Enterovir/Rhinovir PCR DETECTED A Nasal Influenza B PCR NOT DETECTED Nasal Influenza A PCR NOT DETECTED Nasal Parainfluen 1 PCR NOT DETECTED Nasal Parainfluen 2 PCR NOT DETECTED Nasal Parainfluen 3 PCR NOT DETECTED Nasal Parainfluen 4 PCR NOT DETECTED Nasal RSV (PCR) NOT DETECTED Nasal B.pertussis DNA PCR NOT DETECTED Nasal C.pneumoniae (PCR) NOT DETECTED Anthony Human Metapneumo PCR NOT DETECTED Nasal M.pneumoniae (PCR) NOT DETECTED Nasal SARS-CoV-2 (PCR) NOT DETECTED Blood Type O POSITIVE Antibody Screen NEGATIVE
[2024-05-31] MEDS: DOCUSATE SODIUM 100 MG CAPSULE PO SCH (09:08)
[2024-05-31] MEDS: ACETAMINOPHEN 500 MG TABLET PO PRN (10:54)
[2024-06-01 08:01] VITALS: BP 116/63; TEMP 99.4; O2SAT 100
--- NOTE | 2024-06-01 09:51 | Discharge Summary ---
Discharge Summary Admit Date: 05/30/24 Discharge Date: 06/01/24 Discharging Provider: Sidney Green CNM, FNP-C HOSPITAL COURSE Hospital Course: Date of Admission: 05/30/2024 Date of Discharge: 06/01/2024 Diagnosis on admission: 24 yo @ 40+0 weeks gestation by 9+5 wk U/S Early labor FHR 140's Cat I Intact membranes GBS NEG Elevated WBC but may be associated with physiologic changes in labor. Low grade fever Diagnosis on Discharge 24 yo s/p vaginal delivery @ 40+0 weeks compound delivery with small vaginal abraision PPD#2 unremarkable pp course. Desires D/C to home Physical exam: Normocephalic, atraumatic No extra work of breathing Normal uterine involution, FF below umbilicus Small rubra bleeding minimal perineal discomfort. Bilateral LE's no edema Mood is good. Brief History: She is a patient of [facility] who presented on the morning of 05/30/2024 with complaints of contractions. She was found to be patricia regularly and quickly progressed complete. Labor progressed naturally without medication. Effective epidural for pain management. She spontaneously delivered a viable female apgars 8 and 9 at 1 and 5 minutes respectively. EBL 550 ml. small abrasion to vaginal introidus. weight: 9#4oz. She has been doing well in her course. She is ambulating and tolerating a regular diet. She is urinating without difficulty and her lochia is normal. Her pain is well controlled without narcotic management. She will be discharged to home today on day 2 and encouraged IBU, tylenol and stool softeners PRN. I have sent in a prescription for IBU to her preferred pharmacy. She intends to follow up with [facility] early next week by telehealth. She has been given precautions to call if she has any new or worsening sx such as returning fevers, chills, abdominal pain, increasing bleeding, or foul smelling vaginal lochia. preeclamptic precautions reviewed as well. ALLERGIES Allergies Allergy/AdvReac Type Severity Reaction Status Date / Time chlorhexidine Allergy Intermediate Rash Verified 05/27/24 14:36 amoxicillin Allergy Rash Verified 05/27/24 14:36 MEDICATIONS Ambulatory Orders Medication Instructions Recorded Confirmed vit no.95-ferrous 1 ea PO DAILY 09/18/23 05/30/24 fumarate 28 mg-folic acid 800 mcg tablet folic acid 1 mg tablet 1 mg PO DAILY 02/14/24 05/30/24 ibuprofen 600 mg tablet 600 mg PO Q6HR PRN Moderate Pain 06/01/24 (Level 4-6) #30 tabs LABS 05/30/24 13:55 Discharge Plan Discharge Patient Disposition: LONGTERM, Self Care Prescriptions: New ibuprofen 600 mg Tablet 600 mg PO Q6HR PRN (Reason: Moderate Pain (Level 4-6)) Qty: 30 1RF Continued PNV cmb#95-ferrous fumarate-FA 1 EACH tablet 1 ea PO DAILY folic acid 1 mg tablet 1 mg PO DAILY Patient Comments: TAKE 5 TABLETS BY MOUTH DAILY. TOTAL DAILY DOSE 5 MG Print Language: Syriac Patient Instructions: Breastfeed Holds, , Self Care Follow-up Care: Mary Beth Green ARNP [Provider Admit Priv/Credential] - (Will call her for telehealth appointment Monday06/04/24 in the afternoon)
--- NOTE | 2024-06-01 12:20 | Labor Flowsheet ---
Labor Flowsheet Datetime Report Generated by CPN: 06/01/2024 12:20 Datetime: 06/01/2024 07:47 VITAL SIGNS NBP Sys/Sonia/Mean (mmHg): 116 : 63 : 75 Pulse: 67 LaborFlag: Labor Datetime: 05/31/2024 06:05 Temperature (C): 36.8 Datetime: 05/31/2024 03:40 Temperature Route: Oral Datetime: 05/30/2024 23:55 SpO2 (%): 98 Datetime: 05/30/2024 23:24 Amniotic Fluid Amount: Moderate Datetime: 05/30/2024 23:10 UTERINE ACTIVITY Monitor Mode: External Frequency (min): 2-2.5 Quality: Strong Duration (sec): 60-80 Pattern: Normal: <= 5 Contractions in 10 Minutes Resting Tone (Palpate): Relaxed ASSESSMENT A Monitor Mode: Telemetry FHR Baseline Rate : 140 FHR Baseline Changes: No Baseline Change Variability: Moderate 6-25 bpm Decelerations: Variable Datetime: 05/30/2024 22:24 VAGINAL EXAM Dilatation (cm): 10.0 Effacement (%): 100 Station: 1 Exam by: Melanee RN Datetime: 05/30/2024 22:00 Accelerations: 15X15 Datetime: 05/30/2024 20:46 Monitor Interventions for UA: Lupus Adjusted Datetime: 05/30/2024 20:40 Patient Position/Activity: Right Lateral Datetime: 05/30/2024 19:31 Actions for Decelerations: IV Bolus Datetime: 05/30/2024 19:29 COMMUNICATION Communication: Provider at Bedside Datetime: 05/30/2024 19:03 ANESTHESIA Anesthesia Plans: Epidural Anesthesia Comments: Catheter pulled back by Sharron to address pt complaning left side pain. Datetime: 05/30/2024 19:02 Pain Coping: Crying Pain Assessment Comments: sharron gonsalves at bedside Comfort Measures: Breathing/Relaxation Datetime: 05/30/2024 19:00 Category: Category I Oxygen Method: Room Air Datetime: 05/30/2024 18:49 Epidural Procedure: Test Dose Datetime: 05/30/2024 18:44 Epidural Procedure Other: Pump Started Datetime: 05/30/2024 18:38 Epidural Positioning: Sitting Datetime: 05/30/2024 18:34 PROCEDURE TIME OUT Procedure Verify: Correct Patient Position Datetime: 05/30/2024 18:15 PATIENT CARE IV/Blood Work: IV Bolus Started Datetime: 05/30/2024 17:55 Membrane Status: Ruptured Membranes Ruptured Date/Time: 05/30/2024 17:55 Membranes Rupture Method: Artificial Amniotic Fluid Color: Clear Amniotic Fluid Odor: Normal KOHLI'S SCORE Dilatation (cm): 5 or greater cms Effacement: >80_ effaced Station: minus 2 Position: Anterior Datetime: 05/30/2024 17:50 Stage of : Labor Hygiene: Underpad Changed Provider Reviewed Strip: Yes Strip Reviewed by: Mary Beth Dooley Datetime: 05/30/2024 17:11 Respirations: 16 PAIN Pain Scale: 7 Datetime: 05/30/2024 16:47 Pain Presence: Intermittent Pain Type: Cramping Pain Location: Abdomen Datetime: 05/30/2024 13:23 Pain Relief Measures: Comfort Measures Datetime: 05/30/2024 12:20 Patient Care Comments: jacuzzi
== END 2024-06-01 12:00 | disposition home or self-care (01) | DRG 768 ==
LOC: WFO 08:18 → FBP 08:21
PROVIDERS: ADMIT Nurse Practitioner; ATTEND Nurse Practitioner